=== PATIENT | female | born 1965 | race African-American/Black ===

== ENCOUNTER 2020-12-05 16:46 | Emergency (ER) | payer OTHER ==
[~2020-12-05] VITALS: Ht 167.6 cm; Wt 114.0 kg
[2020-12-05] MEDS ORDERED: MORPHINE SULFATE 4 MG/ML CPJ (NOT FOR IM USE) IV STA (17:50)
[2020-12-05] MEDS ORDERED: ONDANSETRON HCL 4MG/2ML INJ IV STA (17:50)
[2020-12-05] MEDS ORDERED: ASPIRIN 81MG TABLET PO ONE (18:00)
[2020-12-05] MEDS ORDERED: NITROGLYCERIN OINT 1GM/INCH UDPKT TD ONE (18:00)
[2020-12-05 18:09] LABS: BASOPHILS % 0.4 % (0.0-2.0); EOSINOPHILS % 5.6 % (0.0-5.0); HEMATOCRIT. 37.4 % (36.0-48.0); HEMOGLOBIN. 12.9 g/dL (12.0-16.0); LYMPHOCYTES % 38.2 % (20.0-50.0); MEAN CORPUSCULAR HEMOGLOBIN 31.8 pg (28.0-32.0); MEAN CORPUSCULAR VOLUME 92.3 fL (81.0-99.0); MEAN PLATELET VOLUME 9.8 fl (7.4-10.4); MONOCYTES % 4.5 % (2.0-8.0); NEUTROPHILS % 51.3 % (40.0-76.0); PLATELET 245 x1000/uL (130-400); RED BLOOD CELL COUNT 4.05 mill/uL (4.2-5.4); RED CELL DISTRIBUTION WIDTH 12.7 % (11.6-14.6)
[2020-12-05] MEDS ORDERED: MORPHINE SULFATE 2 MG/ML CPJ (NOT FOR IM USE) IV SCH (18:15)
[2020-12-05 18:17] LABS: CHLORIDE 109 mEq/L (98-107)
[2020-12-05 18:20] LABS: HCG SCREEN NEGATIVE
[2020-12-05] MEDS ORDERED: KETOROLAC 15MG/ML VIAL IV ONE (19:15)
[2020-12-05] MEDS ORDERED: IBUP-2028 MT (23:16)
[2020-12-05 23:50] VITALS: BP 137/101
== END 2020-12-06 00:18 | disposition home or self-care (01) ==
LOC: ER 16:46
DX: R07.89 Other chest pain (principal); R79.89 Other specified abnormal findings of blood chemistry; J45.909 Unspecified asthma, uncomplicated; Z88.0 Allergy status to penicillin
CPT/HCPCS: 36415; 71045; 80053; 83690; 83880; 84484; 84703; 85025; 85379; 93005; 96374; 96375; 99285; J1885; J2270; J2405; Z7610